=== PATIENT | male | born 1990 ===

== ENCOUNTER 2017-02-24 03:32 | Emergency (ER) | payer OTHER ==
[2017-02-24 03:33] VITALS: BMI 21.9
[2017-02-24 03:40] VITALS: BP 129/65; PULSE 65; RESP 14; TEMP 99; O2SAT 100
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
[2017-02-24] MEDS ORDERED: TDAP Vaccine 0.5 mL Syr IM ONE (05:35)
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
== END 2017-02-24 06:18 | disposition home or self-care (01) ==
LOC: H.ER 03:32
DX: S01.01XA Laceration without foreign body of scalp, initial encounter (principal); F10.129 Alcohol abuse with intoxication, unspecified; X99.0XXA Assault by sharp glass, initial encounter; Y93.9 Activity, unspecified